=== PATIENT | male | born 1980 | race Caucasian/White ===

== ENCOUNTER 2021-01-25 06:03 | Emergency (ER) | payer SELFPAY ==
[~2021-01-25] VITALS: Ht 172.7 cm; Wt 95.3 kg
[2021-01-25 06:07] VITALS: BP 92/61
--- NOTE | 2021-01-25 06:15 | NUR ---
41 YO/M BIB self w C/O constant pulsating L flank pain 10/10 that began last night. Patient reports pain woke him up and he went to urinate and saw stones coming out with his urine. Patient denies fever n/v/d. Patient denies painful urination or blood in urine. Patient sitting in bed, locked in lowest position, x1 siderail up, at bedside. NAD noted, will continue to monitor. PMH:Denies NKA
--- NOTE | 2021-01-25 06:18 | NUR ---
Patient unable to provide urine at this time, water provided to patient to drink.
[2021-01-25] MEDS ORDERED: NACL 0.9% 1,000 ML IV SCH (06:20)
[2021-01-25] MEDS ORDERED: KETOROLAC 30 MG/ML VIAL IVP ONE (06:20)
--- NOTE | 2021-01-25 06:40 | NUR ---
Patient refused pain medication, reports his pain got better and is not bad at this time and is now at 4/10.
--- NOTE | 2021-01-25 06:48 | NUR ---
Patient taken to CT via Wheel chair.
[2021-01-25 06:49] LABS: BASOPHILS # (AUTO) 0.1 K/uL (0.00-0.22); BASOPHILS % (AUTO) 1.1 % (0.0-2.0); EOSINOPHILS # (AUTO) 0.2 K/uL (0-0.4); HEMATOCRIT 44.2 % (36-52); LYMPHOCYTES % (AUTO) 25.9 % (20.5-51.1); MEAN CORPUSCULAR HEMOGLOBIN 30 pg (27-31); MEAN CORPUSCULAR HGB CONC 34 g/dL (33-37); MEAN CORPUSCULAR VOLUME 89.1 fL (80-94); MONOCYTES # (AUTO) 0.8 K/uL (0.8-1.0); MONOCYTES % (AUTO) 10.9 % (1.7-9.3); NEUTROPHILS # (AUTO) 4.6 K/uL (1.8-7.7); NEUTROPHILS % (AUTO) 60.1 % (42.2-75.2); PLATELET COUNT (AUTO) 235 K/uL (140-450); RED BLOOD CELL COUNT(AUTO) 4.96 MIL/uL (4.20-6.10); WHITE BLOOD COUNT (AUTO) 7.7 K/uL (4.8-10.8)
--- NOTE | 2021-01-25 06:54 | NUR ---
Patient returned from CT.
[2021-01-25 07:02] LABS: ALBUMIN 3.9 g/dL (3.4-5.0); ANION GAP 13.4 (8-16); CARBON DIOXIDE 28.9 mmol/L (21-32); CREATININE 1.1 mg/dL (0.6-1.3); POTASSIUM 4.3 mmol/L (3.5-5.1); TOTAL BILIRUBIN 0.3 mg/dL (0.0-1.0)
--- NOTE | 2021-01-25 07:07 | NUR ---
Report given to BOGDAN Olsen for transfer of care.
--- NOTE | 2021-01-25 07:07 | NUR ---
Report received from BOGDAN Dhillon for continuity of care.
--- NOTE | 2021-01-25 08:00 | NUR ---
URINE SAMPLE COLLECTED HANDED TO CPT [id number]
[2021-01-25 08:06] LABS: APPEARANCE,URINE CLEAR (CLEAR); BILIRUBIN,URINE NEGATIVE (NEGATIVE); BLOOD, URINE 2+ (NEGATIVE); COLOR,URINE YELLOW (YELLOW); LEUKOCYTE ESTERASE ,URINE NEGATIVE (NEGATIVE); NITRITE, URINE NEGATIVE (NEGATIVE); UGLUCOSE NEGATIVE (NEGATIVE)
[2021-01-25] MEDS ORDERED: NAPR-54 PO (08:15)
[2021-01-25 08:20] VITALS: BP 92/61
[2021-01-25 08:40] LABS: WBC,URINE 0-5 /HPF (0-5)
== END 2021-01-25 08:20 | disposition home or self-care (01) ==
LOC: MED 06:03
DX: N23 Unspecified renal colic (principal); Z79.899 Other long term (current) drug therapy
CPT/HCPCS: 36415; 74176; 80053; 81001; 85025; 96360; 99284; J7030; J1885

== ENCOUNTER 2023-09-17 18:15 | Emergency (ER) | payer SELFPAY ==
[~2023-09-17] VITALS: Ht 165.1 cm; Wt 97.1 kg
[~2023-09-17 18:15] MED LIST: NAPR-54 PO
[2023-09-17 18:52] VITALS: BP 160/116; PULSE 95; RESP 20; TEMP 98.2; O2SAT 97
[2023-09-17] MEDS ORDERED: CIPR7.5D2 BOTH EARS (19:04)
[2023-09-17] MEDS ORDERED: IBUP-2213 PO (19:04)
== END 2023-09-17 19:15 | disposition home or self-care (01) ==
LOC: MED 18:15
DX: H60.93 Unspecified otitis externa, bilateral (principal); Z79.899 Other long term (current) drug therapy
CPT/HCPCS: 99283